=== PATIENT | female | born 1970 | race Caucasian/White ===

== ENCOUNTER → 2016-04-07 | Outpatient (CLI) | payer OTHER, MEDICARE ==
--- NOTE | 2016-04-11 23:44 | RADIOLOGY REPORT PS360 ---
DIG MAMM-SCREEN YOVANNY W/CAD CAD Screening ORDERING PHYSICIAN : Clark Moscoso MD PATIENT AGE: 45 years GENDER: Female COMPARISON: Previous mammograms: June 2005 INDICATION: Routine screening 44-year-old no hormones no new complain Family history.: Maternal grandmother with breast cancer in her 70s. Sister with breast cancer in her 30s TECHNIQUE: Standard CC and MLO images were obtained. R2 CAD reviewed. . FINDINGS: Mild/Moderate density breast tissue is seen extending towards upper outer quadrant both breast.. There is been no significant change since previous the previous filmscreen study from 2005. No focal area of concern. No suspicious calcifications. CAD highlights no areas of concern either. IMPRESSION: ... Stable bilateral mammogram since 2005. No new areas of concern BI-RADS CATEGORY: 1_Negative RECOMMENDED FOLLOWUP: 12M 12 MONTH FOLLOW-UP (A letter has been sent to the patient regarding results of the study.)
== END ==
LOC: RAD 03-30 10:30
DX: Z12.31 Encounter for screening mammogram for malignant neoplasm of breast (principal)
CPT/HCPCS: G0202

== ENCOUNTER → 2016-07-27 | Outpatient (CLI) | payer OTHER, MEDICARE ==
--- NOTE | 2016-07-27 16:38 | RADIOLOGY REPORT PS360 ---
KNEE-3 VIEWS-LT HISTORY: LEFT KNEE PAIN ORDERING PHYSICIAN: Clark Moscoso MD PATIENT AGE: 45 years COMPARISON: None FINDINGS: No fracture or dislocation. No lytic or blastic change. Normal mineralization. No significant arthritic changes evident. There is increased soft tissue density in the suprapatellar region consistent with knee joint effusion. IMPRESSION: Suprapatellar effusion otherwise negative
== END ==
LOC: RAD 14:58
DX: M25.562 Pain in left knee (principal)

== ENCOUNTER 2017-01-16 12:05 | Emergency (ER) | payer OTHER, MEDICARE ==
[~2017-01-16] VITALS: Ht 154.9 cm; Wt 36.3 kg
[2017-01-16] MEDS ORDERED: XANAX 0.5MG TA0.5 MG PO (12:09)
[2017-01-16] MEDS ORDERED: RANITIDINE HCL150 MG PO (12:10)
[2017-01-16] MEDS ORDERED: NORCO 325 MG-51 TAB PO (12:10)
[2017-01-16 12:34] LABS: HEMOGLOBIN 13.6 g/dL (12.2-16.2); LYMPH # 2.3 K/mm3 (0.7-4.5)
--- OUTSIDE RECORDS SUMMARY | 2017-01-16 12:46 | External Medical Summary Rpt | CCD ---
Demographics Preferred Language Estonian Marital Status Unknown Taoism Affiliation Unknown Race Unknown Ethnic Group Unknown Author Author [employer] Address Unknown Phone [email or web address] Purpose Continuity of Care Document - through 2016
--- OUTSIDE RECORDS SUMMARY | 2017-01-16 12:46 | External Medical Summary Rpt | CCD ---
Author Author AN[employer] Address Unknown Phone [email or web address] Purpose Continuity of Care Document - through 2016
--- OUTSIDE RECORDS SUMMARY | 2017-01-16 12:46 | External Medical Summary Rpt | CCD ---
Author Author AN[employer]IONETTE Address Unknown Phone Purpose Continuity of Care Document - through 2016
--- OUTSIDE RECORDS SUMMARY | 2017-01-16 12:46 | External Medical Summary Rpt | CCD ---
Demographics Preferred Language Pashto Marital Status Unknown Methodist Affiliation Unknown Race Unknown Ethnic Group Unknown Author Author [employer] Address Unknown Phone [email or web address] Purpose Continuity of Care Document - through 2016
--- OUTSIDE RECORDS SUMMARY | 2017-01-16 12:48 | External Medical Summary Rpt ---
Author Author [employer], [employer] Organization [employer] Address Unknown Phone Unavailable Results CBC W Auto Differential panel in Blood Observa Value Referen Units Interpr Notes Date tion ce etation Range Basophils 0 - 0.2 K/MM3 Normal No Jan 16 informati 2016 [#/volume on in 12:30 PM ] in source Blood by data Automated count Basophils 0.1 - 2.0 % Normal No Jan 16 inform2016 leukocyte on in 12:30 PM s in source Blood by data Automated count Eosinophi 0.0 - 0.4 K/mm3 Normal No Jan 16 ls informati 2016 [#/volume on in 12:30 PM ] in source Blood by data Automated count Eosinophi 0.1 - % Normal No Jan 16 ls/100 12.0 informati 2016 leukocyte on in 12:30 PM s in source Blood by data Automated count Granulocy 1.8 - 7.8 K/mm3 Normal No Jan 16 chrissy informati 2016 [#/volume on in 12:30 PM ] in source Blood by data Automated count Granulocy 37.0 - % Normal No Jan 16 chrissy/100 80.0 informati 2016 leukocyte on in 12:30 PM s in source Blood by data Automated count Hematocri 37.0 - % Normal No Jan 16 t [Volume 47.0 informati 2016 on in 12:30 PM Fraction] source of Blood data Hemoglobi 12.2 - g/dL Normal No Jan 16 n 16.2 informati 2016 [Mass/vol on in 12:30 PM ume] in source Blood data Lymphocyt 0.7 - 4.5 K/mm3 Normal No Jan 16 es informati 2016 [#/volume on in 12:30 PM ] in source Unspecifi data ed specimen by Automated count Lymphocyt 10 - 50.0 % Normal No Jan 16 es informati 2016 [#/volume on in 12:30 PM ] in source Unspecifi data ed specimen by Automated count Erythrocy 27 - 31.2 pg Normal No Jan 16 te mean informati 2017 corpuscul on in 12:30 PM ar source hemoglobi data n [Entitic mass] Erythrocy 31.8 - g/dl Normal No Jan 16 te mean 35.4 inform2016 corpuscul on in 12:30 PM ar source hemoglobi data n concentra tion [Mass/vol ume] by Automated count Erythrocy 82.2 - fl Normal No Jan 16 te mean 97.8 informati 2016 corpuscul on in 12:30 PM ar volume source [Entitic data volume] by Automated count Monocytes 0.1 - 1.0 K/mm3 Normal No Jan 16 informati 2016 [#/volume on in 12:30 PM ] in source Blood by data Automated count Monocytes 1.7 - 9.3 % Normal No Jan 16 /100 informati 2016 leukocyte on in 12:30 PM s in source Blood by data Automated count Platelet 7.4 - fl Normal No Jan 16 mean 10.4 informati 2016 volume on in 12:30 PM [Entitic source volume] data in Blood by Automated count Platelets 142 - 424 K/mm3 Normal No Jan 16 informati 2016 [#/volume on in 12:30 PM ] in source Blood data Erythrocy 4.2 - 5.4 M/mm3 Normal No Jan 16 chrissy informati 2016 [#/volume on in 12:30 PM ] in source Amniotic data fluid Erythrocy 11.5 - % Normal No Jan 16 te 17.5 informati 2016 distribut on in 12:30 PM ion width source [Entitic data volume] by Automated count Leukocyte 4.8 - K/MM3 Normal No Jan 16 s 10.8 informati 2016 [#/volume on in 12:30 PM ] in source Blood data
--- OUTSIDE RECORDS SUMMARY | 2017-01-16 12:48 | External Medical Summary Rpt | CCD ---
Demographics Preferred Language Vietnamese Marital Status Unknown Orthodox Affiliation Unknown Race Unknown Ethnic Group Unknown Author Author , [employer] Organization [employer] Address Unknown Phone Immunization Unable to retrieve immunization data due to connection failure with Immunization Registry. Please try again later.
--- OUTSIDE RECORDS SUMMARY | 2017-01-16 12:48 | External Medical Summary Rpt | CCD ---
Demographics Preferred Language Amharic Marital Status Unknown Pentecostalism Affiliation Unknown Race Unknown Ethnic Group Unknown Author Author , [employer] Organization [employer] Address Unknown Phone Immunization Unable to retrieve immunization data due to connection failure with Immunization Registry. Please try again later.
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
[2017-01-16] MEDS ORDERED: ZOFRAN ODT4 MG PO (14:11)
[2017-01-16 14:15] VITALS: BP 98/64
== END 2017-01-16 14:16 | disposition home or self-care (01) ==
LOC: ER 12:05
PROVIDERS: Emergency Medicine
DX: A08.4 Viral intestinal infection, unspecified (principal); F17.210 Nicotine dependence, cigarettes, uncomplicated; K21.9 Gastro-esophageal reflux disease without esophagitis; Z88.8 Allergy status to other drugs, medicaments and biological substances
CPT/HCPCS: J2405